=== PATIENT | female | born 1960 | race Caucasian/White ===

== ENCOUNTER → 2020-06-29 08:09 | Outpatient (CLI) | payer OTHER, SELFPAY ==
[2020-06-29 19:22] LABS: SARS-CoV-2 RNA PCR Negative
== END ==
PROVIDERS: PCP Family Medicine; Visit Provider Internal Medicine Gastroenterology
DX: Z01.812 Encounter for preprocedural laboratory examination (principal); Z20.822 Contact with and (suspected) exposure to COVID-19
CPT/HCPCS: C9803; U0003; U0005

== ENCOUNTER 2020-07-02 00:28 | Day surgery (SDC) | payer OTHER, SELFPAY ==
[2020-06-27 09:28] VITALS: BMI 23.4
[2020-07-02 09:12] VITALS: BP 150/93; PULSE 88; TEMP 36.6; O2SAT 97
--- NOTE | 2020-07-02 09:17 | WPDANESEPPF ---
Anes - Initial Pre Proc Eval Procedure: Operation Date: 07/02/20 10:30 Proposed Procedures p Screening Colonoscopy - Adrian Martinez MD Date/Time: 07/02/20 09:17 Surgeon: Adrian Martinez MD Pre Op Diagnosis: neoplasm screening Patient Data Age: 60 Gender: F Height: 5 ft 7 in Weight: 68 kg Last Vital Signs Temp 36.6 C 07/02/20 09:12 Pulse 88 07/02/20 09:12 BP 150/93 H 07/02/20 09:12 Pulse Ox 97 07/02/20 09:12 Allergies Allergy/AdvReac Type Severity Reaction Status Date / Time No Known Allergies Allergy Unverified 07/02/20 09:11 Home Medications Medication Instructions Recorded Confirmed Type sodium,potassium,mag sulfates 17.5 See Rx Instructions PO .COMPLEX 06/14/20 Rx gram-3.13 gram-1.6 gram oral soln #354 ml cetirizine [Zyrtec] 10 mg PO DAILY 06/27/20 07/02/20 History Patient hx anesthesia problems: none Family hx anesthesia problems: none PMFSH Past Medical History Medical History Encounter for screening colonoscopy Family History Family History Father Hypertension Family history of lung cancer Mother Hypertension Social History Social History Smoking status: Never smoker Alcohol intake: current Substance use: never Substance use type: does not use Living arrangements: with family Gender identity (if verbalized by the patient): Female Anes - Eval Final PreProcedure Day of Procedure 07/02/20 09:17 Patient weight: normal Heart: regular rate and rhythm Lungs: clear to auscultation Airway: Mallampati scale class 1 Neurological: alert and oriented Last oral intake: >/= 8 hours ASA classification: I Emergent: no Anesthetic plan: proceed Anesthesia type and monitoring: general GIVS and standard monitoring Informed Consent: The patient's anesthetic plan and its attendant risks and benefits were discussed with the patient/family/POA. Questions were solicited and answers provided to the satisfaction of the patient/family/POA.
--- NOTE | 2020-07-02 09:24 | WPDGICN ---
Assessment and Plan Assessment and plan (1) Encounter for screening colonoscopy: Code(s): Z12.11 - Encounter for screening for malignant neoplasm of colon Status: Acute Assessment and Plan: Patient appears to be at average risk for colon polyps. Colonoscopy is recommended now it should be considered at 10 year intervals. Further recommendations may be given after endoscopy. GI Consult Note Consult date/time: 07/02/20 09:24 HPI: Tanja Basurto is a 60 year old female Presents for screening colonoscopy. Patient reports that her weight appetite bowel movements are normal. She denies abdominal pain. She has had no bleeding. Her family history is noncontributory. Review of Systems Review of Systems: All systems reviewed & are unremarkable except as noted in HPI and below PMFSH Past Medical History Medical History Encounter for screening colonoscopy Family History Family History Father Hypertension Family history of lung cancer Mother Hypertension Social History Social History Smoking status: Never smoker Alcohol intake: current Substance use: never Substance use type: does not use Living arrangements: with family Gender identity (if verbalized by the patient): Female Meds Home Medications and Allergies Home Medications Medication Instructions Recorded Confirmed Type sodium,potassium,mag sulfates 17.5 See Rx Instructions PO .COMPLEX 06/14/20 Rx gram-3.13 gram-1.6 gram oral soln #354 ml cetirizine [Zyrtec] 10 mg PO DAILY 06/27/20 07/02/20 History Allergies Allergy/AdvReac Type Severity Reaction Status Date / Time No Known Allergies Allergy Unverified 07/02/20 09:11 Vital Signs Vital Signs - 24 hr 07/02/20 09:12 Temperature 97.8 F Pulse Rate 88 Blood Pressure 150/93 H Pulse Oximetry 97 Exam Narrative: Exam Narrative: Physical exam reveals patient be alert. Vital signs stable. HEENT exam is unremarkable. Patient is anicteric. Lungs are clear to auscultation and percussion. Heart is without murmur or extra sounds. Abdominal exam bowel sounds are present soft nontender with no organomegaly. Digital external rectal exam is normal.
[2020-07-02] MEDS: LACTATED RINGERS 1,000 ML 150 ML IV CONT (09:36)
[2020-07-02 09:58] VITALS: BP 101/58; PULSE 79; RESP 28; O2SAT 95
[2020-07-02 10:08] VITALS: BP 110/70; PULSE 82; RESP 17; O2SAT 95
[2020-07-02 10:18] VITALS: BP 110/77; PULSE 74; RESP 19; O2SAT 96
== END 2020-07-02 10:31 | disposition home or self-care (01) ==
PROVIDERS: PCP Physician Assistant; Visit Provider Internal Medicine Gastroenterology
PROC: 0DJD8ZZ Inspection of Lower Intestinal Tract, Via Natural or Artificial Opening Endoscopic (ICD-10-PCS; CPT 45378; principal; 2020-07-02 10:30)
DX: Z12.11 Encounter for screening for malignant neoplasm of colon (principal); K64.8 Other hemorrhoids
CPT/HCPCS: 45378; C9803; J2704; J7120; U0003; U0005